=== PATIENT | male | born 1945 | race Caucasian/White ===

== ENCOUNTER 2023-07-27 10:35 | Day surgery (SDC) | payer BC ==
[2023-07-27 11:59] VITALS: BP 135/88; TEMP 97.5
[2023-07-27] MEDS ORDERED: Apixaban 5 MG TAB PO SCH (12:00)
[2023-07-27] MEDS ORDERED: Flecainide 50 MG TAB PO SCH (12:00)
[2023-07-27] MEDS ORDERED: PROPOFOL 40 ML ONE (12:26)
== END 2023-07-27 14:10 | disposition home or self-care (01) ==
LOC: CSHSDC 10:35
PROVIDERS: ATTEND Internal Medicine Cardiovascular Disease
PROC: 5A2204Z Restoration of Cardiac Rhythm, Single (ICD-10-PCS; principal; 2023-07-27)
DX: I48.0 Paroxysmal atrial fibrillation (principal); E78.5 Hyperlipidemia, unspecified; I10 Essential (primary) hypertension; K21.9 Gastro-esophageal reflux disease without esophagitis; E11.9 Type 2 diabetes mellitus without complications; Z88.0 Allergy status to penicillin; Z88.8 Allergy status to other drugs, medicaments and biological substances; Z79.84 Long term (current) use of oral hypoglycemic drugs; Z79.899 Other long term (current) drug therapy
CPT/HCPCS: 92960; 93005; 93010; J2704